=== PATIENT | female | born 1990 | race Caucasian/White ===

== ENCOUNTER 2018-05-22 05:55 | Inpatient (IN) | payer BC, OTHER ==
[2016-02-19 19:15] VITALS: BMI 36.6
[2018-05-22] MEDS ORDERED: Lactated Ringer's 1,000 ML IV ONE (07:42)
[2018-05-22] MEDS ORDERED: cefOXitin IV 1 gm in Dextrose 1 GM/50 ML BAG IVPB ONE (08:41)
[2018-05-22] MEDS ORDERED: Sodium Citrate/Citric Acid 15 ml Sol PO ONE (08:41)
[2018-05-22 09:07] LABS: BASO % 0.4 % (0.0-2.0); EOS # 0.1 K/uL (0.0-0.7); EOS % 1.3 % (0.0-4.0); HEMOGLOBIN 12.4 g/dL (11.0-16.0); LYMPH # 1.9 K/uL (1.0-4.3); LYMPH % 26.6 % (20.0-40.0); MEAN CELL VOLUME 78.9 fL (81.0-99.0); MEAN CORPUSCULAR HEMOGLOBIN 26.2 pg (27.0-31.0); MEAN CORPUSCULAR HGB CONC 33.2 g/dL (33.0-37.0); MEAN PLATELET VOLUME 8.2 fL (7.2-11.7); MONO # 0.4 K/uL (0.0-0.8); NEUT # 4.6 K/uL (1.8-7.0); NEUT % 66.7 % (50.0-75.0); NRBC % 0.2 % (0.0-2.0); RBC 4.74 Mil/uL (3.80-5.20)
[2018-05-22 09:17] LABS: SQUAMOUS EPITHIAL 5 /hpf (0-5); URINE BACTERIA RARE (<OCC); URINE BILIRUBIN NEGATIVE (NEGATIVE); URINE BLOOD NEGATIVE (NEGATIVE); URINE CLARITY Clear (Clear); URINE COLOR Yellow (YELLOW); URINE GLUCOSE (UA) NORMAL (Normal); URINE LEUKOCYTE ESTERASE NEG Leu/uL (Negative); URINE PROTEIN NEGATIVE (NEGATIVE); URINE UROBILINOGEN NORMAL mg/dL (0.2-1.0)
[2018-05-22 09:23] LABS: ALB/GLOB RATIO 1.1 (1.0-2.1); ALT/SGPT 27 U/L (9-52); AST/SGOT 26 U/L (14-36); BLOOD UREA NITROGEN 9 mg/dL (7-17); CALCIUM 9.2 mg/dl (8.6-10.4); GFR AFRICAN-AMERICAN > 60; GFR NON-AFRICAN AMERICAN > 60
[2018-05-22 10:18] LABS: BARBITURATES, UR NEGATIVE (NEGATIVE); BENZODIAZEPINES, UR NEGATIVE (NEGATIVE); OPIATES, UR NEGATIVE (NEGATIVE); PHENCYCLIDINE, UR NEGATIVE (NEGATIVE)
[2018-05-22] MEDS ORDERED: Sodium Citrate/Citric Acid 15 ml Sol ONE (10:51)
[2018-05-22] MEDS ORDERED: Oxytocin 20 units in LR 2,000 ML IV ONE (10:51)
[2018-05-22] MEDS ORDERED: cefOXitin IV 2 gm in Saline 2 GM/50 ML BAG IVPB ONE (10:58)
[2018-05-22] MEDS ORDERED: ePHEDrine 50 mg/ml Inj ONE (11:05)
--- NOTE | 2018-05-22 11:35 | OBADHP ---
Datetime: 05/22/2018 09:58 Admit Comment, IP Provider: Patient is a 28 year old female at 39 weeks by LMP 08/06 LETI 05/29/18 that came to the OB unit for scheduled Cesarian section for today 05/22/18. Juice romero reports no complications during the . Patient is having contractions every 20 minutes sinc e 3 days ago. Patient reports no vaginal bleeding or ruptured membranes. Patient states having movements during encounter. POBhx: - 2016, 35wks, male, 5 lbs, Caesarean section, placenta praevia, [facility] [place], no other complicatio ns PGYNhx: Age at menarche 17yo, periods every 30 days, lasting 3-4 days, denies sexual trasmitted di sease history, last Pap smear 03/2018 normal results Allergies: NKDA Medications: vitamins PMhx: denies Sxhx: section 03/20/2016 FMhx: mother, no medical problems (alive, 40yo), father, HTN (alive, 50yo), paternal grandmother, breast cancer, Sochx: denies alcohol, tobacco, illicit drug use. . Currrently umemployed. ROS: denies fever, chills, headache, dizziness, chest pain, shortness of breath, abdominal pain, n ausea, vomiting, diarrhea or constipation P.E.: as above. Awake, alert, oriented to time, person and place. pleasant and cooperative Assessment: 28 y.o. P0101, 39 weeks, previous C/S x 1 for elective repeat C/S. Category 1 tracing. R/B/C D/W; no questions offered. Consents signed, dated, witnessed, and placed in chart. Patient cuca romero ate 2300 hours. Clinically stable. Plan:1) Admit 2) NPo 3) Continuous EFM 4) Admission labs 5) Abdominal prep and shave 6) rivera 7) Notify peds 8) Notify anesthesia 9) Mefoxin bonding agent to O.R. 10) Patient bonding agent to O.R Matt Mancini, PGY-1 Attending Note: patient seen and evalauted by me with the Resident. I agree with the above as docu mented. Cervical exam performed by and consents obtainded by me. Dr. Mancini also served as drier operator head . Extremities - PN: Normal Abdomen - PN: Normal Back - PN: Normal Breast - PN: Not Done Lungs - PN: Normal Heart - PN: Normal Thyroid - PN: Not Done Neurologic - PN: Normal HEENT - PN: Normal General - PN: Normal Presentation-Admit: Vertex FHR - Baseline A Provider: 135 Contraction Comments Provider: irregular Comments, ACOG Physical Exam: General: no acute distress, lying comfortably in bed HEENT: atraumatic, normocephalic, EOMI, neck supple CardioVasc: regular rate and Rhythm, S1 S2, no murmurs Pulm: clear to ascultation bilaterally, no wheezes, rales and ronchi Abdomen: no tender to palpation, normal bowel sounds on 4 quadrants Fundal height: 36cm Extremities: Lower extremities nontender, no edema, no calf tenderness All other systems reviewed and are negative Gestation - Est Wks by US: 39.0 IP Hx Assessment: The History has been Reviewed and is Current Vital Signs Provider: Reviewed; Within Normal Limits IP Chief Complaint: Scheduled Section NICHD Variability Prov Fetus A: Moderate 6-25bpm NICHD Accel Fetus A IP Provider: [id number] FHR Category Provider Fetus A: Category I NICHD Decel Fetus A IP Provider: None Dilatation, Provider: 1 Effacement, Provider: 30 Station, Provider: -3 EGA AdmitDate IP: 39.0 IP Adm Impression: Term, intrauterine ; No Active Labor; Intact Membranes IP Admit Plan: Admit to unit; Initiate Section protocol
[2018-05-22] MEDS ORDERED: cefOXitin IV 2 gm in Dextrose 2 GM/50 ML BAG IVPB ONE (12:00)
[2018-05-22] MEDS ORDERED: ceFAZolin 2 GM in Sodium Chloride 0.9% 100 ML IVPB ONE (12:00)
[2018-05-22] MEDS ORDERED: DiphenhydrAMINE 50 mg/ml Inj IVP PRN (13:42)
--- NOTE | 2018-05-22 15:58 | PCM.SURG1 ---
Surgeon's Initial Post Op Note - Surgeon's Notes Surgeon: Trina White MD Cartography Technician: Philippe Rangel MD; Rasta Jarrett, MS-3 Type of Anesthesia: Spinal Anesthesia Administered By: Earl Shabazz MD Pre-Operative Diagnosis: 39 weeks gestation, previous section. h/o previous delivery Operative Findings: Live female , JOY position, nuchal cord x 2; weight 6lb 10oz; 's 9/9. Normal uterus; normal fallopian tubes and ovaries, bilaterally. Dense adhesions anteriorly from uterus to anterior abdominal wall. Cord pH 7.28. Post-Operative Diagnosis: Same Operation Performed: Repeat LTCS; lysis of adhesions Specimen/Specimens Removed: None Estimated Blood Loss: EBL {In ML}: 800 (U.O. 100 mL, clear; IVFs 1700 mL LR) Blood Products Given: N/A Drains Used: No Drains Post-Op Condition: Good Date of Surgery/Procedure: 05/22/18 Time of Surgery/Procedure: 14:40
[2018-05-23] MEDS: Oxycodone/Acetaminophen 5/325 mg Tab PO PRN ×4 (06:18→22:33)
--- NOTE | 2018-05-23 06:50 | OP ---
Copied To: Trina White MD Attending MD: Trina White MD PROCEDURE DATE: 05/22/2018 SURGEON: Trina White MD PUBLIC [employer]IDES TEACHER: Philippe Rangel MD SEC[employer] PA[employer] ROLLER WINDER: Rasta Jarrett, medical student, third year. ANESTHESIA TYPE: Spinal ANESTHESIOLOGIST: Earl Shabazz MD PREOPERATIVE DIAGNOSIS: 39 weeks' gestation, previous section with a history of previous delivery. POSTOPERATIVE DIAGNOSIS: 39 weeks' gestation, previous section with a history of previous delivery. OPERATIVE FINDINGS: Live female infant from the left occipital anterior position. Nuchal cord x2 was noted. It was tight and reduced over the infant's head. Weight was 6 pounds 10 ounces. Apgars were 9 and 9 at 1 and 5 minutes respectively. There were normal uterus and normal fallopian tubes and ovaries bilaterally. There were dense adhesions anteriorly from the uterus to the anterior abdominal wall and the cord pH was 7.28. OPERATION PERFORMED: Repeat transverse lower uterine segment section and lysis of adhesions. SPECIMENS: None. COMPLICATIONS: None. ESTIMATED BLOOD LOSS: 800 mL. URINE OUTPUT: 100 mL of clear urine. INTRAVENOUS FLUIDS: There was total of 17,000 of lactated ringers. First 1000 mL having contained 20 units of Pitocin. BLOOD PRODUCTS GIVEN: None. COMPLICATIONS: None. DESCRIPTION OF PROCEDURE: The patient was taken to the operating room after having obtained informed consent for the anticipated procedure. This included discussion of risk and potential complications including but not limited to infection requiring antibiotics, hemorrhage requiring blood transfusion, repair of any damage to internal organs and possible hysterectomy. The patient expressed understanding, consent forms were signed, dated, witnessed and placed in the chart. A Morrison catheter had been inserted under sterile conditions, and the patient received Mefoxin 2 g prior to being escorted to the operating room. In the operating room, she was placed on the operating room table in sitting position where spinal anesthesia was administered without incident. She was immediately repositioned into supine position, and the abdomen was subsequently prepped, and she was draped in usual sterile fashion. After assuring an adequate level of anesthesia using a scalpel, Pfannenstiel incision was made through the previous scar. The incision was carried down through the subcutaneous tissue using the Bovie electrocautery. The fascia was identified. It was nicked in the midline and the incision was extended bilaterally, also using the Bovie electrocautery. The rectus muscle was then dissected off the overlying fascia using the scalpel. The rectus muscle was in the midline and the peritoneum was entered via blunt dissection. Upon evaluation of the intra-abdominal contents, the adhesion as described above was noted. Lysis of adhesion was performed without incident. The vesicouterine reflection was identified, and the bladder flap was created. A transverse incision was then made on the lower uterine segment. Amniotomy was performed and a moderate amount of clear amniotic fluid was retrieved. Atraumatic delivery of the with findings as above ensued. Once on the operative field, the 's mouth and nose were bulb suctioned as umbilical cord was doubly clamped and cut. A segment of the umbilical cord was requested for cord pH analysis. Results are as above. By manual extraction, the placenta was removed. The uterus was then exteriorized for closure. This was done in two layers using 0 Vicryl. The first layer was in a running interlocking fashion. The second layer was in a horizontal imbricating fashion. After assuring adequate hemostasis on the uterine incision, attention was then directed posteriorly. Copious irrigation was performed and the findings of the pelvic viscera was noted as above. Attention was redirected to the anterior aspect of the uterus that was noted to be hemostatic. The uterus was replaced within the abdominal cavity and the paracolic gutters were cleared of all debris. A layer of intercede was placed anteriorly to the uterus. The parietal peritoneum was then reapproximated using 2-0 chromic in a running fashion. The muscle was reapproximated in midline again using 2-0 chromic in a running fashion. The fascia was reapproximated using 1-0 Vicryl in two sections. The subcutaneous tissue was reapproximated in the midline using plain catgut in a running fashion, and the skin was reapproximated using 3-0 Monocryl in a subcuticular manner. Steri-Strips were applied, and a pressure dressing was applied. The patient was then repositioned in a frog-leg manner. Bimanual uterine exploration was performed, and the uterus was emptied of additional blood clots and debris. The uterus was contracted and firm, noted to be approximately one fingerbreadth below the umbilicus. The patient tolerated the procedure well. She was transferred back to [facility] #3 in stable condition. The had been transferred to the [facility] also in stable condition. Trina MD Christopher
[2018-05-23 07:09] LABS: HEMOGLOBIN 11.4 g/dL (11.0-16.0); MEAN CELL VOLUME 78.6 fL (81.0-99.0); MEAN CORPUSCULAR HEMOGLOBIN 26.1 pg (27.0-31.0); MEAN CORPUSCULAR HGB CONC 33.2 g/dL (33.0-37.0); MEAN PLATELET VOLUME 7.5 fL (7.2-11.7); RBC 4.37 Mil/uL (3.80-5.20); RED CELL DISTRIBUTION WIDTH 14.9 % (11.5-14.5); WHITE BLOOD COUNT 7.8 K/uL (4.8-10.8)
[2018-05-23] MEDS: Prenatal Multivit/Folic Acid/Iron Tab PO SCH (09:50)
--- NOTE | 2018-05-23 10:39 | OBPPN ---
Datetime: 05/23/2018 10:36 PP Pain Prov: Within normal limits PP Nausea Prov: Denies PP Flatus Prov: No PP BM Prov: No PP Breasts Prov: Normal PP Heart Prov: Normal PP Lungs Prov: Normal PP Abdomen/Uterus Prov: Normal PP Lochia Prov: Normal PP Extremities Prov: Normal PP C/S Incision Prov: Normal PP Progress Prov: Normal PP Impression Prov: Normal progression PP Plan Prov: Continue present management PP Progress Note Prov: s: no c/o. pain well controlled w/ medic. tolerating reg diet i: pod1 cd doing well p: rout pp care ambulate wound care dw pt IP PP Procedures: None Vital Signs Provider PP: Within Normal Limits
[2018-05-24] MEDS: Oxycodone/Acetaminophen 5/325 mg Tab PO PRN ×3 (06:38→17:07)
[2018-05-24] MEDS: Prenatal Multivit/Folic Acid/Iron Tab PO SCH (09:05)
--- NOTE | 2018-05-24 18:51 | OBPPN ---
Datetime: 05/24/2018 08:11 PP Pain Prov: Within normal limits PP Nausea Prov: Denies PP Flatus Prov: Yes PP BM Prov: No PP Breasts Prov: Normal PP Heart Prov: Normal PP Lungs Prov: Normal PP Abdomen/Uterus Prov: Normal PP Lochia Prov: Normal PP Vulva/Perineum Prov: Normal PP CVA Tenderness Prov: Normal PP Extremities Prov: Normal PP Impression Prov: Normal progression PP Plan Prov: Continue present management PP Progress Note Prov: 27 @ 39 1 s/p RCS POD #2. 1) VITALS SIGNS STABLE 2) POST OP HGB: 11.4 3) BREAST FEEDING 4) ENCOURAGED AMBULATION 5) ROUTINE POST OP CARE Vital Signs Provider PP: Within Normal Limits Datetime: 05/23/2018 10:36 PP Comments Phys Exam Prov: pfannensteil incision: c/d/i; no erythema/drainage.
--- NOTE | 2018-05-25 09:12 | OBPPN ---
Datetime: 05/25/2018 09:09 PP Pain Prov: Within normal limits PP Nausea Prov: Denies PP Flatus Prov: Yes PP BM Prov: Yes PP Breasts Prov: Normal PP Heart Prov: Normal PP Lungs Prov: Normal PP Abdomen/Uterus Prov: Normal PP Lochia Prov: Normal PP Extremities Prov: Normal PP C/S Incision Prov: Normal PP Progress Prov: Normal PP Impression Prov: Normal progression PP Plan Prov: Discharge PP Progress Note Prov: s: no c/o. pain well controlled with meds i:pod3 CD doing well p: d/c home. f/u 2wks for incision IP PP Procedures: None Vital Signs Provider PP: Within Normal Limits
--- NOTE | 2018-05-25 09:15 | OBDCSUM ---
Datetime: 05/25/2018 09:11 Discharged to, Provider: Home Follow up at, Provider: ob dr [facility] Instr Activity: May Shower Disch Instr Diet: Regular Discharge Instructions, Provider: Routine instructions given Discharge Diagnosis, Provider: Term Delivered Discharge Time: 05/25/2018 09:11 Follow up in weeks, Provider: f/u 2wks for incision Disch Referrals: None Disch Activity Restrictions: No exercising; No lifting; No driving; No sexual activity; Nothing in v agina - [place], tampons, douche Discharge Comment, Provider: continue pnv Contraception after Delivery: Undecided
[2018-05-25 09:50] VITALS: BP 108/75; PULSE 72; RESP 18; TEMP 97.6; O2SAT 99
[2018-05-25] MEDS: Prenatal Multivit/Folic Acid/Iron Tab PO SCH (11:28)
== END 2018-05-25 15:00 | disposition home or self-care (01) | DRG 766 ==
LOC: C.4D 05:55 → C.4M 16:30
PROVIDERS: ADMIT Obstetrics & Gynecology; ATTEND Obstetrics & Gynecology
PROC: 10D00Z1 Extraction of Products of Conception, Low, Open Approach (ICD-10-PCS; principal; 2018-05-22)
DX: O69.81X0 Labor and delivery complicated by cord around neck, without compression, not applicable or unspecified (principal); O34.211 Maternal care for low transverse scar from previous cesarean delivery; Z3A.39 39 weeks gestation of pregnancy; K66.0 Peritoneal adhesions (postprocedural) (postinfection); Z68.38 Body mass index [BMI] 38.0-38.9, adult; Z37.0 Single live birth